=== PATIENT | female | born 1985 | race Two or more races ===

== ENCOUNTER 2018-02-21 14:33 | Outpatient (CLI) | payer OTHER ==
[~2018-02-21 14:33] MED LIST: MOTRIN800 MG PO
== END 2018-02-21 16:06 | disposition home or self-care (01) ==
LOC: RAD 14:33
DX: M25.561 Pain in right knee (principal); M17.11 Unilateral primary osteoarthritis, right knee

== ENCOUNTER 2018-09-30 15:03 | Emergency (ER) | payer OTHER ==
[~2018-09-30] VITALS: Ht 170.2 cm; Wt 54.4 kg
[2018-09-30] MEDS ORDERED: LAMICTAL150 M1 (15:18)
[2018-09-30] MEDS ORDERED: VYVANSE60 MG (15:19)
== END 2018-09-30 18:17 | disposition home or self-care (01) ==
LOC: ER 15:03
DX: S93.492A Sprain of other ligament of left ankle, initial encounter (principal); X58.XXXA Exposure to other specified factors, initial encounter; Y93.89 Activity, other specified; Y92.89 Other specified places as the place of occurrence of the external cause; Y99.8 Other external cause status

== ENCOUNTER 2018-10-25 15:33 | Outpatient (CLI) | payer OTHER ==
[~2018-10-25 15:33] MED LIST changes: +LAMICTAL150 M1; +VYVANSE60 MG
== END 2018-10-25 15:55 | disposition home or self-care (01) ==
LOC: RAD 15:33
DX: S92.255D Nondisplaced fracture of navicular [scaphoid] of left foot, subsequent encounter for fracture with routine healing (principal)

== ENCOUNTER 2019-03-28 11:40 | Outpatient (CLI) | payer OTHER | END 2019-03-28 11:49 | disposition home or self-care (01) | LOC: RAD 501 11:40 | DX: M25.551 Pain in right hip (principal) ==

== ENCOUNTER 2019-04-02 13:40 | Outpatient (CLI) | payer OTHER | END 2019-04-02 14:39 | disposition home or self-care (01) | LOC: TOM 13:40 | DX: M25.551 Pain in right hip (principal); S70.01XA Contusion of right hip, initial encounter ==

== ENCOUNTER 2019-07-22 11:07 | Outpatient (CLI) | payer OTHER | END 2019-07-22 11:20 | disposition home or self-care (01) | LOC: NUCLEAR 11:07 | DX: I70.213 Atherosclerosis of native arteries of extremities with intermittent claudication, bilateral legs (principal); M79.672 Pain in left foot; M79.671 Pain in right foot ==

== ENCOUNTER 2019-09-13 11:25 | Outpatient (CLI) | payer OTHER | END 2019-09-13 11:43 | disposition home or self-care (01) | LOC: LAB 11:25 | DX: E56.1 Deficiency of vitamin K (principal); M85.88 Other specified disorders of bone density and structure, other site; E55.9 Vitamin D deficiency, unspecified ==

== ENCOUNTER → 2019-10-16 | Outpatient (CLI) | payer OTHER | END | disposition home or self-care (01) | LOC: RAD 15:19 | DX: M25.572 Pain in left ankle and joints of left foot (principal) ==

== ENCOUNTER → 2020-07-01 | Outpatient (CLI) | payer OTHER | END | disposition home or self-care (01) | LOC: NUCLEAR 13:18 | PROVIDERS: ATTEND Orthopaedic Surgery | DX: M81.0 Age-related osteoporosis without current pathological fracture (principal) ==

== ENCOUNTER → 2022-04-18 11:47 | Outpatient (CLI) | payer OTHER | END | disposition home or self-care (01) | LOC: LAB 11:47 | PROVIDERS: ATTEND General Practice | DX: E55.9 Vitamin D deficiency, unspecified (principal) ==

== ENCOUNTER 2022-04-26 12:54 | Outpatient (CLI) | payer OTHER | END 2022-04-26 12:55 | disposition home or self-care (01) | LOC: NUCLEAR 12:54 | PROVIDERS: ATTEND General Practice | DX: M81.0 Age-related osteoporosis without current pathological fracture (principal) ==

== ENCOUNTER 2023-06-11 19:16 | Emergency (ER) | payer OTHER ==
[~2023-06-11] VITALS: Ht 157.5 cm; Wt 47.6 kg
== END 2023-06-11 19:51 | disposition home or self-care (01) ==
LOC: ER 19:16
DX: L50.9 Urticaria, unspecified (principal); R21 Rash and other nonspecific skin eruption; Z91.018 Allergy to other foods; Z91.040 Latex allergy status; Z91.048 Other nonmedicinal substance allergy status

== ENCOUNTER 2023-06-13 15:28 | Emergency (ER) | payer OTHER ==
[~2023-06-13] VITALS: Ht 157.5 cm; Wt 47.6 kg
== END 2023-06-13 18:03 | disposition home or self-care (01) ==
LOC: ER 15:28
DX: L50.8 Other urticaria (principal); Z91.018 Allergy to other foods; Z91.040 Latex allergy status